=== PATIENT | male | born 1970 | race American Indian/Alaskan Native ===

== ENCOUNTER 2017-11-24 22:27 | Emergency (ER) | payer MEDICAID ==
[2017-11-24 22:42] VITALS: TEMP 98.1; BMI 21.8
[2017-11-24] MEDS ORDERED: Naloxone 0.4 mg/ml Inj (Adult) IVP STA ×2 (23:08→23:09)
[2017-11-24] MEDS ORDERED: Sodium Chloride 0.9% 500 ML IV STA ×2 (23:09→23:47)
[2017-11-24 23:37] LABS: ACETAMINOPHEN < 10.0 ug/ml (10.0-20.0); ALB/GLOB RATIO 1.1 (1.1-1.8); ALBUMIN 4.2 g/dL (3.0-4.8); ALT/SGPT 97 U/L (7-56); AST/SGOT 99 U/L (17-59); BLOOD UREA NITROGEN 13 mg/dL (7-21); CALCIUM 9.1 mg/dL (8.4-10.5); GFR AFRICAN-AMERICAN > 60; GFR NON-AFRICAN AMERICAN > 60; SALICYLATE < 1 mg/dL (2.0-20.0)
[2017-11-24 23:38] LABS: BASO # 0.01 K/mm3 (0.0-2.0); BASO % 0.2 % (0.0-3.0); EOS % 0.7 % (1.5-5.0); GRAN # 1.82 (1.4-6.5); GRAN % 29.7 % (50.0-68.0); HEMOGLOBIN 12.8 g/dL (14.0-18.0); LYMPH # 3.6 (1.2-3.4); LYMPH % 58.3 % (22.0-35.0); MEAN CELL VOLUME 85.2 fl (80.0-105.0); MEAN CORPUSCULAR HEMOGLOBIN 29.6 pg (25.0-35.0); MEAN CORPUSCULAR HGB CONC 34.8 g/dl (31.0-37.0); MEAN PLATELET VOLUME 10.5 fl (7.0-11.0); MONO # 0.7 (0.1-0.6); MONO % 11.1 % (1.0-6.0); RBC 4.32 10^6/uL (3.5-6.1); RED CELL DISTRIBUTION WIDTH 14.3 % (11.5-14.5); WHITE BLOOD COUNT 6.1 10^3/ul (4.5-11.0)
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
[2017-11-25 03:50] VITALS: O2SAT 100
[2017-11-25 06:46] VITALS: BP 125/84; PULSE 78; RESP 16
--- NOTE | 2017-11-25 22:47 | CARD ---
APPROVED REPORT EKG Measurement Heart [id number] <Conclusion> Normal sinus rhythm Possible Left atrial enlargement Borderline ECG
== END 2017-11-25 07:08 | disposition home or self-care (01) ==
LOC: ED 22:27 → MERGE 22:27 → ED 11-25 07:08
DX: F19.10 Other psychoactive substance abuse, uncomplicated (principal)
CPT/HCPCS: 80053; 80320; 80329; 83735; 85025; 93005; 96374; 99284; J2310; J7040

== ENCOUNTER 2018-05-07 03:15 | Emergency (ER) | payer MEDICAID ==
[2018-05-07 03:17] VITALS: BMI 23.7
--- NOTE | 2018-05-07 03:33 | ED PDOC ---
Arrival/HPI - General Time Seen by Provider: 05/07/18 03:30 Historian: Patient - History of Present Illness Narrative History of Present Illness (Text): 05/07/18 03:33 Robert Osborn is a 47 year old male, whose past medical history includes substance abuse, who presents to the Emergency department brought in by EMS status post possible seizure. As per EMS, they were notified by patient's significant other after patient had a possible unwitnessed seizure. Patient is unable to recall the event and denies any drug abuse, alcohol abuse, headache, dizziness, or vomiting. Limited HPI and ROS secondary to patient's acuity of condition. Time/Duration: Prior to Arrival Symptom Onset: Sudden Symptom Course: Unchanged Activities at Onset: Light Context: Home Past Medical History - Provider Review Nursing Documentation Reviewed: Yes - Infectious Disease Hx of Infectious Diseases: None - Psychiatric Hx Substance Use: Yes (heroin) Family/Social History - Physician Review Nursing Documentation Reviewed: Yes Family/Social History: Unknown Family HX Smoking Status: Heavy Smoker > 10 Cigarettes Daily Hx Alcohol Use: No Hx Substance Use: Yes (heroin) Allergies/Home Meds Allergies/Adverse Reactions: Allergies No Known Allergies Allergy (Verified 05/07/18 13:26) Home Medications: Home Meds Medication Instructions Recorded Confirmed No Known Home Med 05/07/18 05/07/18 Review of Systems - Review of Systems Systems not reviewed;Unavailable: Acuity of Condition Neurological: Seizure Physical Exam Vital Signs Reviewed: Yes Vital Signs Temp Pulse Resp BP Pulse Ox 05/07/18 03:31 97.9 F 78 20 146/74 100 Temperature: Afebrile Blood Pressure: Normal Pulse: Regular Respiratory Rate: Normal Appearance: Positive for: Well-Appearing, Non-Toxic, Comfortable Pain Distress: None Mental Status: Positive for: Alert and Oriented X 3 Finger Stick Blood Glucose: 99 - Systems Exam Head: Present: Atraumatic, Normocephalic Pupils: Present: PERRL Extroacular Muscles: Present: EOMI Conjunctiva: Present: Normal Mouth: Present: Moist Mucous Membranes Neck: Present: Normal Range of Motion Respiratory/Chest: Present: Clear to Auscultation, Good Air Exchange. No: Respiratory Distress, Accessory Muscle Use Cardiovascular: Present: Regular Rate and Rhythm, Normal S1, S2. No: Murmurs Abdomen: No: Tenderness, Distention, Peritoneal Signs Back: Present: Normal Inspection Upper Extremity: Present: Normal Inspection. No: Cyanosis, Edema Lower Extremity: Present: Normal Inspection. No: Edema Neurological: Present: GCS=15, CN II-XII Intact, Speech Normal Skin: Present: Warm, Dry, Normal Color. No: Rashes Psychiatric: Present: Alert, Oriented x 3, Normal Insight, Normal Concentration Medical Decision Making ED Course and Treatment: 05/07/18 03:33 Impression: 47 year old male brought in s/p seizure, pt unable to recall event. Plan: -- CT Head w/o contrast -- EKG -- Labs, alcohol level -- Urinalysis, urine drug screen -- Reassess and disposition Prior Visits: Notes and results from previous visits were reviewed. Progress Notes: 05/07/18 03:56 Reviewed EKG, NSR at [address]-segment elevations or depressions, no T-wave inversions, normal intervals. 05/07/18 04:32 CT Head reviewed, shows: Normal size of the ventricles and extra-axial spaces for the patient's age. Normal white matter tracts of the supratentorial brain. Normal basal ganglia and thalami. Normal brainstem. Normal cerebellum. There is no demonstrated extra-axial, intraparenchymal, or intraventricular hemorrhage. There are no findings of an acute ischemic infarction. Normal calvarium. There is no demonstrated fracture. Normal soft tissue structures. Normal visualized paranasal sinuses. IMPRESSION: Normal unenhanced CT scan of the brain. Electronically signed on May 07, 2018 4:30:06 AM EST by: Sanju Raman M.D., Certified by ABR, MSK, Neuroradiology 05/07/18 05:[address] Tadeo, who is aware and agrees with plan. Accepts pt in to hospitalist service. Pt will go to remote telemetry observation for seizure. president practicing urologist notified. - Lab Interpretations Lab Results: Lab Results 05/07/18 03:21: POC Glucose (mg/dL) 99 I have reviewed the lab results: Yes - RAD Interpretation Bulldozer Mechanic: Radiologist - EKG Interpretation Interpreted by ED Physician: Yes Type: 12 lead EKG - Scribe Statement The provider has reviewed the documentation as recorded by the Timboibrodolfo Kearns Provider Scribe Attestation: All medical record entries made by the Scribe were at my direction and personally dictated by me. I have reviewed the chart and agree that the record accurately reflects my personal performance of the history, physical exam, medical decision making, and the department course for this patient. I have also personally directed, reviewed, and agree with the discharge instructions and disposition. Disposition/Present on Arrival - Present on Arrival Any Indicators Present on Arrival: No History of DVT/PE: No History of Uncontrolled Diabetes: No Urinary Catheter: No History Surgical Site Infection Following: None - Disposition Have Diagnosis and Disposition been Completed?: Yes Diagnosis: Seizure Disposition: HOSPITALIZED Disposition Time: 05:41 Condition: FAIR Additional Instructions: Patient eloped from hospital. Forms: [employer] (Macedonian)
[2018-05-07 04:08] LABS: BASO # 0.02 K/mm3 (0.0-2.0); BASO % 0.4 % (0.0-3.0); EOS # 0.2 (0.0-0.7); EOS % 3.1 % (1.5-5.0); GRAN # 0.73 (1.4-6.5); GRAN % 15.1 % (50.0-68.0); HEMOGLOBIN 12.3 g/dL (14.0-18.0); LYMPH # 3.5 (1.2-3.4); LYMPH % 73.1 % (22.0-35.0); MEAN CELL VOLUME 84.8 fl (80.0-105.0); MEAN CORPUSCULAR HEMOGLOBIN 29.1 pg (25.0-35.0); MEAN CORPUSCULAR HGB CONC 34.4 g/dl (31.0-37.0); MEAN PLATELET VOLUME 9.7 fl (7.0-11.0); MONO # 0.4 (0.1-0.6); MONO % 8.3 % (1.0-6.0); PLATELET COUNT 163 10^3/uL (120.0-450.0); RBC 4.22 10^6/uL (3.5-6.1); RED CELL DISTRIBUTION WIDTH 13.8 % (11.5-14.5); WHITE BLOOD COUNT 4.8 10^3/uL (4.5-11.0)
[2018-05-07 04:17] LABS: ALB/GLOB RATIO 0.9 (1.1-1.8); ALBUMIN 3.8 g/dL (3.0-4.8); ALT/SGPT 61 U/L (7-56); AST/SGOT 78 U/L (17-59); BLOOD UREA NITROGEN 8 mg/dL (7-21); CALCIUM 9.2 mg/dL (8.4-10.5); GFR NON-AFRICAN AMERICAN > 60
[2018-05-07 05:57] LABS: BAND 1 % (0-2); EOSINOPHIL 4 % (0.0-3.0); LYMPHOCYTE 78 % (22.0-35.0); MONOCYTE 1 % (1.0-6.0); NEUTROPHIL 16 % (50.0-70.0); PLATELET ESTIMATE NORMAL (NORMAL); TOXIC GRANULATION SLIGHT
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
--- NOTE | 2018-05-07 07:25 | CT ---
Date of service: 05/07/2018 PROCEDURE: CT HEAD WITHOUT CONTRAST. HISTORY: seizure COMPARISON: None available. TECHNIQUE: Axial computed tomography images were obtained through the head/brain without intravenous contrast. Radiation dose: Total exam DLP = 855.71 mGy-cm. This CT exam was performed using one or more of the following dose reduction techniques: Automated exposure control, adjustment of the mA and/or kV according to patient size, and/or use of iterative reconstruction technique. FINDINGS: HEMORRHAGE: No intracranial hemorrhage. BRAIN: No mass effect or edema. No atrophy or chronic microvascular ischemic changes. VENTRICLES: There mild asymmetric in the size of the lateral ventricles with the right is larger than the left likely normal variant.. No hydrocephalus. CALVARIUM: Unremarkable. PARANASAL SINUSES: Unremarkable as visualized. No significant inflammatory changes. MASTOID AIR CELLS: Unremarkable as visualized. No inflammatory changes. OTHER FINDINGS: None. IMPRESSION: No evidence of acute intracranial hemorrhage intracranial collection mass effect or midline shift. Preliminary report was submitted by [facility] Radiology contains concordant findings.
[2018-05-07 07:46] VITALS: TEMP 98.5; O2SAT 98
--- NOTE | 2018-05-07 09:45 | RAD ---
Date of service: 05/07/2018 HISTORY: seizure COMPARISON: No prior. FINDINGS: LUNGS: No active pulmonary disease. PLEURA: No significant pleural effusion identified, no pneumothorax apparent. CARDIOVASCULAR: No aortic atherosclerotic calcification present. Normal cardiac size. No pulmonary vascular congestion. OSSEOUS STRUCTURES: No significant abnormalities. VISUALIZED UPPER ABDOMEN: Normal. OTHER FINDINGS: None. IMPRESSION: No active disease.
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
--- NOTE | 2018-05-07 10:40 | CARD ---
APPROVED REPORT Date of service: 05/07/2018 EKG Measurement Heart [id number] <Conclusion> Normal sinus rhythm Normal ECG
[2018-05-07] MEDS ORDERED: Pneumococcal 23-Valent Vaccine IM ONE (14:07)
[2018-05-07] MEDS ORDERED: Influenza Vaccine 60 mcg/0.5 mL SYR (4YR UP) IM ONE (14:07)
[2018-05-07 14:45] VITALS: RESP 18
[2018-05-07 16:05] VITALS: BP 121/75; PULSE 61
--- NOTE | 2018-05-07 17:13 | CP.PCM.DIS ---
Provider - Provider Date of Admission: 05/07/18 05:41 Attending physician: Gerardo Enriquez MD Primary care physician: Dr. Ly Consults: 05/07/18 06:23 Neurology Consult Routine Comment: Consulting Provider: Laura Gudino Consulting Physician: Laura Gudino Reason for Consult: unwitnessed seizure 05/07/18 14:15 Patient Advocate Consultation ONCE Comment: Physician Instructions: Reason For Exam: EVALUATION Time Spent in preparation of Discharge (in minutes): 60 Diagnosis - Discharge Diagnosis (1) Seizure Status: Acute Hospital Course - Lab Results Lab Results: Most Recent Lab Values WBC 4.8 10^3/uL (4.5-11.0) 05/07/18 03:48 RBC 4.22 10^6/uL (3.5-6.1) 05/07/18 03:48 Hgb 12.3 g/dL (14.0-18.0) L 05/07/18 03:48 Hct 35.8 % (42.0-52.0) L 05/07/18 03:48 MCV 84.8 fl (80.0-105.0) 05/07/18 03:48 MCH 29.1 pg (25.0-35.0) 05/07/18 03:48 MCHC 34.4 g/dl (31.0-37.0) 05/07/18 03:48 RDW 13.8 % (11.5-14.5) 05/07/18 03:48 Plt Count 163 10^3/uL (120.0-450.0) 05/07/18 03:48 MPV 9.7 fl (7.0-11.0) 05/07/18 03:48 Gran % 15.1 % (50.0-68.0) L 05/07/18 03:48 Lymph % (Auto) 73.1 % (22.0-35.0) H 05/07/18 03:48 King % (Auto) 8.3 % (1.0-6.0) H 05/07/18 03:48 Eos % (Auto) 3.1 % (1.5-5.0) 05/07/18 03:48 Baso % (Auto) 0.4 % (0.0-3.0) 05/07/18 03:48 Gran # 0.73 (1.4-6.5) L 05/07/18 03:48 Lymph # (Auto) 3.5 (1.2-3.4) H 05/07/18 03:48 King # (Auto) 0.4 (0.1-0.6) 05/07/18 03:48 Eos # (Auto) 0.2 (0.0-0.7) 05/07/18 03:48 Baso # (Auto) 0.02 K/mm3 (0.0-2.0) 05/07/18 03:48 Neutrophils % (Manual) 16 % (50.0-70.0) L 05/07/18 03:48 Band Neutrophils % 1 % (0-2) 05/07/18 03:48 Lymphocytes % (Manual) 78 % (22.0-35.0) H 05/07/18 03:48 Monocytes % (Manual) 1 % (1.0-6.0) 05/07/18 03:48 Eosinophils % (Manual) 4 % (0.0-3.0) H 05/07/18 03:48 Toxic Granulation Slight 05/07/18 03:48 Platelet Evaluation Normal (NORMAL) 05/07/18 03:48 Sodium 141 mmol/L (132-148) 05/07/18 03:48 Potassium 3.9 mmol/L (3.6-5.0) 05/07/18 03:48 Chloride 107 mmol/L (98-107) 05/07/18 03:48 Carbon Dioxide 28 mmol/L (21-33) 05/07/18 03:48 Anion Gap 11 (10-20) 05/07/18 03:48 BUN 8 mg/dL (7-21) 05/07/18 03:48 Creatinine 0.8 mg/dl (0.8-1.5) 05/07/18 03:48 Est GFR ( Amer) > 60 05/07/18 03:48 Est GFR (Non-Af Amer) > 60 05/07/18 03:48 POC Glucose (mg/dL) 99 mg/dL (65-110) 05/07/18 03:21 Random Glucose 96 mg/dL (70-110) 05/07/18 03:48 Calcium 9.2 mg/dL (8.4-10.5) 05/07/18 03:48 Phosphorus 3.7 mg/dL (2.5-4.5) 05/07/18 03:48 Magnesium 1.7 mg/dL (1.7-2.2) 05/07/18 03:48 Total Bilirubin 0.7 mg/dL (0.2-1.3) 05/07/18 03:48 AST 78 U/L (17-59) H D 05/07/18 03:48 ALT 61 U/L (7-56) H 05/07/18 03:48 Alkaline Phosphatase 80 U/L (38-126) 05/07/18 03:48 Total Protein 8.0 g/dL (5.8-8.3) 05/07/18 03:48 Albumin 3.8 g/dL (3.0-4.8) 05/07/18 03:48 Globulin 4.1 gm/dL 05/07/18 03:48 Albumin/Globulin Ratio 0.9 (1.1-1.8) L 05/07/18 03:48 Alcohol, Quantitative < 10 mg/dL (0-10) 05/07/18 03:48 - Hospital Course Hospital Course: Steven Alba, PGY-1, Internal Medicine Discharge Summary for Dr. Pa 47 year old male with past medical history of polysubstance abuse and untreated hepatitis C presented to the hospital after patient's girlfriend called emergen cy services after seeing patient foaming in the mouth and was concerned about a possible seizure. Head CT showed no evidence of acute intracranial hemorrhage or midline shift. MRI of brain was ordered as per neurology. EEG was also ordered by the medicine team. HIV was ordered and CIWA protocol was initiated. Patient was placed on ativan 2 mg Q6PRN for alcohol withdrawal symptoms. Patient reported he wanted to leave. I went and talked to the patient and explained the risks of leaving such as another possible seizure or . I explained the benefits such as diagnosing any potential neurological problems and treating them. Patient reported that he did not want to sign the AMA documentation and proceeded to elope from the hospital. Patient was told to follow up with PCP and return to the emergency department if he had any concerning symptoms. This is a brief summary of the events that occurred at the hospital. For further details, please refer to hospital documentation. - Date & Time of H&P Date of H&P: 05/07/18 Time of H&P: 06:07 Discharge Exam - Head Exam Head Exam: NORMAL INSPECTION Discharge Plan - Follow Up Plan Condition: FAIR Disposition: AGAINST MEDICAL ADVICE Additional Instructions: Patient eloped from hospital.
== END 2018-05-07 16:30 | disposition left against medical advice (07) ==
LOC: ED 03:15 → UNDOADMOB 05:41 → ERH 05:41 → ED 16:30
DX: R56.9 Unspecified convulsions (principal); F19.10 Other psychoactive substance abuse, uncomplicated; B19.20 Unspecified viral hepatitis C without hepatic coma